=== PATIENT | female | born 1950 | race African-American/Black ===

== ENCOUNTER 2017-01-04 07:08 | Emergency (ER) | payer OTHER ==
[~2017-01-04] VITALS: Ht 165.1 cm; Wt 110.0 kg
[~2017-01-04 07:08] MED LIST: HYDR-2768 PO; LORA-392 PO; METO50TA PO; OMEP20TA39 PO; SERT100 PO
[2017-01-04 07:10] VITALS: BP 208/93; PULSE 55; RESP 20; TEMP 98.9; O2SAT 99
[2017-01-04 07:35] VITALS: BP 194/86
[2017-01-04] MEDS ORDERED: HYDR25TA5 PO (07:45)
[2017-01-04] MEDS ORDERED: METO50TA PO (07:45)
[2017-01-04] MEDS ORDERED: PRIL20CA9 PO (07:45)
[2017-01-04] MEDS ORDERED: ZOLO100T PO (07:45)
[2017-01-04] MEDS ORDERED: LORA-392 PO (07:45)
--- NOTE | 2017-01-04 07:45 | PD ---
HPI Chief Complaint: Bite or Sting Time Seen by Provider: 07:44 Travel History International Travel<30 days: No Contact w/Intl Traveler<30days: No Traveled to known affect area: No History of Present Illness HPI 66-year-old female presents to the emergency department with complaint of rash and itching to her right upper arm since Thursday. The itching continued through Thursday and she took Benadryl last night with good relief. This morning when she woke up with a rash and itching or back. Denies itching or rash to anywhere else on the body other than the right upper arm. Thinks she may have gotten bit by a bug. Denies fever, chills, nausea, vomiting. Denies exposures to new detergents, lotions, soaps, medications, perfumes, foods, environmental exposures. Denies airway edema, shortness of breath. Patient has history of hypertension and took her metoprolol this morning approximately 10 minutes prior to arrival to the ER. She is supposed to take hydrochlorothiazide to but she did not take it this morning because it makes her urinate more frequently and she knew she was coming to the ER. Denies chest pain, shortness of breath, headache, diaphoresis, nausea, vomiting. Allergies to codeine and Lortab. No other medical complaints. No other modifying factors or associated signs and symptoms. PFSH Past Medical History Arthritis: Yes Asthma: No Autoimmune Disease: No Blood Disorders: No Anxiety: Yes Depression: Yes Heart Rhythm Problems: No Cancer: No Cardiac Catheterization: No Cardiovascular Problems: Yes (HTN) High Cholesterol: Yes Chemotherapy: No Chest Pain: Yes Congestive Heart Failure: No COPD: No Diabetes: No Diminished Hearing: No Endocrine: No Gastrointestinal Disorders: Yes Genitourinary: No Hypertension: Yes Immune Disorder: No Implanted Vascular Access Dvce: Yes Kidney Stones: Yes Musculoskeletal: Yes Neurologic: No Psychiatric: No Reproductive: No Respiratory: Yes (ASTHMA) Immunizations Current: No Migraines: Yes Myocardial Infarction: No Radiation Therapy: No Sleep Apnea: No Thyroid Disease: No Ulcer: Yes PNEUMOCCOCAL Vaccine (Year): 2 Menopausal: Yes : 5 Para: 5 Tubal Ligation: Yes Past Surgical History AICD: No Arteriovenous Shunt: No Body Medical Devices: RT KNEE PLATE Coronary Artery Bypass Graft: No Genitourinary Surgery: No Insulin Pump: No Joint Replacement: Yes (RT KNEE REPLACEMENT) Pacemaker: No Other Surgery: Yes (RT KNEE REPLACEMENTS ) Social History Alcohol Use: No Tobacco Use: No Substance Use: No Allergies-Medications (Allergen,Severity, Reaction): Coded Allergies: Codeine (Verified Allergy, Severe, HIVES, 01/04/17) Lortab (Verified Allergy, Severe, 01/04/17) Reported Meds & Prescriptions Reported Meds & Active Scripts Active Reported Zoloft (Sertraline HCl) 100 Mg Tab 100 Mg PO DAILY Metoprolol Tartrate 50 Mg Tab 50 Mg PO BID Prilosec (Omeprazole) 20 Mg Cap 20 Mg PO DAILY PRN Ativan (Lorazepam) 0.5 Mg Tab 0.5 Mg PO DAILY PRN Hydrochlorothiazide 25 Mg Tab 25 Mg PO DAILY Review of Systems Except as stated in HPI: all other systems reviewed are Neg Physical Exam Narrative GENERAL: Well-nourished, well-developed female patient, in no acute distress; afebrile, nontoxic-appearing SKIN: Warm and dry. Right upper arm with mild erythema, maybe secondary to scratching; I do not see any obvious rash or sign of insect bite; no axillary lymphadenopathy. Right upper extremity is supple and non-tense with 2+ radial pulses and sensory intact and without erythema or edema. HEAD: Atraumatic. Normocephalic. EYES: Pupils equal and round. No scleral icterus. No injection or drainage. ENT: Mucosa pink and moist. Airway patent. NECK: Trachea midline. CARDIOVASCULAR: Regular rate. RESPIRATORY: No accessory muscle use. GASTROINTESTINAL: Obese. MUSCULOSKELETAL: No obvious deformities. No clubbing. No cyanosis. No edema. NEUROLOGICAL: Awake and alert. Oriented 3. No obvious cranial nerve deficits. Motor grossly within normal limits. Normal speech. PSYCHIATRIC: Appropriate mood and affect; insight and judgment normal. Data Data Last Documented VS Vital Signs Date Time Temp Pulse Resp B/P Pulse Ox O2 Delivery O2 Flow Rate FiO2 01/04/17 07:35 194/86 01/04/17 07:10 98.9 55 20 99 Room Air MDM Medical Decision Making Medical Screen Exam Complete: Yes Emergency Medical Condition: Yes Medical Record Reviewed: Yes Differential Diagnosis Insect bite, nonspecific rash and skin eruption, hives Narrative Course 66-year-old female with a nonspecific rash or skin interruption to the right upper arm. There is an area of erythema, but appears more consistent with scratching. There are no obvious signs of insect bites or specific rash. Patient is afebrile and nontoxic-appearing. No lymphadenopathy to the right axilla. Instructed patient to continue topical ointment and Benadryl at home as needed for rash and itching. Instructed patient to follow up with cut pressman if symptoms persist. Discussed reasons to return to the emergency department. The patient does have history of hypertension. Her blood pressure is elevated in the ER. Patient is a symptom. She did take her metoprolol approximately 10 minutes prior to arrival. She typically takes hydrochlorothiazide also, but did not take it secondary to increased urination and coming to the ER. Patient says she will take her hydrochlorothiazide when she gets home. Patient verbalizes understanding and agreement with treatment plan. Patient is medically cleared and stable for discharge. Discussed reasons to return to the emergency department. Instructed patient to follow up with primary care provider. Patient agrees with treatment plan. The patients vital signs are stable and the patient is stable for outpatient follow-up and treatment. Patient discharged home, stable and in no acute distress. Diagnosis Primary Impression: Rash and nonspecific skin eruption Referrals: Computer Systems Security Administrator Primary Care Physician Patient Instructions: Acute Rash (ED), General Instructions, Insect Bite or Sting (ED) Additional Instructions: [id number] topicals to reduce itch Benadryl as directed and as needed to reduce itch Follow-up with your primary care provider Follow up dermatology as needed Return to the emergency department immediately with worsening of symptoms Med/Other Pt SpecificInfo: No Change to Meds, No Meds Exist/No RX given Disposition: 01 DISCHARGE HOME Condition: Stable Annalise Parham [employer]ER Jan 04, 2017 07:45
== END 2017-01-04 08:03 | disposition home or self-care (01) ==
LOC: NEPK 07:08
DX: R21 Rash and other nonspecific skin eruption (principal)
CPT/HCPCS: 99282

== ENCOUNTER 2017-12-07 10:45 | Emergency (ER) | payer OTHER ==
[~2017-12-07] VITALS: Ht 162.6 cm; Wt 105.0 kg
[~2017-12-07 10:45] MED LIST changes: -HYDR-2768 PO; +HYDR25TA5 PO; -OMEP20TA39 PO; +PRIL20CA9 PO; -SERT100 PO; +ZOLO100T PO
[2017-12-07 11:56] VITALS: BP 184/86; PULSE 68; RESP 20; TEMP 99.1; O2SAT 98
[2017-12-07 12:00] VITALS: BP 163/75; PULSE 69
--- NOTE | 2017-12-07 12:20 | PD ---
HPI Chief Complaint: ENT Complaint Time Seen by Provider: 12:07 Travel History International Travel<30 days: No Contact w/Intl Traveler<30days: No Traveled to known affect area: No History of Present Illness HPI 67-year-old female presents to the emergency room for evaluation of bilateral ear pain and sore throat for the past 3 days. Pain started on her right ear and has since spread to her left ear. She has severe sore throat that is constant and worse with swallowing. She has associated posterior headache. She has been taking oncv-jxt-bffbtol Tylenol and NyQuil without significant relief in symptoms. She reported a temperature of 102 last night. Patient denies nausea, vomiting, cough, congestion. She did not receive a flu shot this year. PFSH Past Medical History Arthritis: Yes Asthma: No Autoimmune Disease: No Blood Disorders: No Anxiety: Yes Depression: Yes Heart Rhythm Problems: No Cancer: No Cardiac Catheterization: No Cardiovascular Problems: Yes (HTN) High Cholesterol: Yes Chemotherapy: No Chest Pain: Yes Congestive Heart Failure: No COPD: No Diabetes: No Diminished Hearing: No Endocrine: No Gastrointestinal Disorders: Yes Genitourinary: No Hypertension: Yes Immune Disorder: No Implanted Vascular Access Dvce: Yes Kidney Stones: Yes Musculoskeletal: Yes Neurologic: No Psychiatric: No Reproductive: No Respiratory: Yes (ASTHMA) Immunizations Current: No Migraines: Yes Myocardial Infarction: No Radiation Therapy: No Sleep Apnea: No Thyroid Disease: No Ulcer: Yes Tetanus Vaccination: > 5 Years PNEUMOCCOCAL Vaccine (Year): 2 ?: Not Menopausal: Yes : 5 Para: 5 Tubal Ligation: Yes Past Surgical History Abdominal Surgery: Yes AICD: No Arteriovenous Shunt: No Body Medical Devices: RT KNEE PLATE Coronary Artery Bypass Graft: No Genitourinary Surgery: No Insulin Pump: No Joint Replacement: Yes (RT KNEE REPLACEMENT) Pacemaker: No Other Surgery: Yes (RT KNEE REPLACEMENTS ) Family History Family Myocardial Infarction: Yes Social History Alcohol Use: No Tobacco Use: No Substance Use: No Allergies-Medications (Allergen,Severity, Reaction): Coded Allergies: acetaminophen (Unverified Allergy, Severe, 12/07/17) codeine (Unverified Allergy, Severe, HIVES, 12/07/17) hydrocodone (Unverified Allergy, Severe, 12/07/17) Reported Meds & Prescriptions Reported Meds & Active Scripts Active Reported Zoloft (Sertraline HCl) 100 Mg Tab 100 Mg PO DAILY Metoprolol Tartrate 50 Mg Tab 50 Mg PO BID Prilosec (Omeprazole) 20 Mg Cap 20 Mg PO DAILY PRN Ativan (Lorazepam) 0.5 Mg Tab 0.5 Mg PO DAILY PRN Hydrochlorothiazide 25 Mg Tab 25 Mg PO DAILY Review of Systems Except as stated in HPI: all other systems reviewed are Neg Physical Exam Narrative GENERAL: Well-nourished, well-developed female no acute distress. Afebrile. Ambulatory. SKIN: Focused skin assessment warm/dry. HEAD: Normocephalic. EYES: No scleral icterus. No injection or drainage. NECK: Supple, trachea midline. No JVD or lymphadenopathy. ENT: Mucosa pink and moist. Moderate erythema without edema or exudates. No uvular edema. No uvular, palatal, or tonsillar deviation. Airway patent. Nasal turbinates appear normal without nasal blood, purulent drainage or septal hematoma. EARS: Bilateral pinnae and external canals appear within normal limits. Bilateral tympanic membranes without erythema, dullness or perforation. CARDIOVASCULAR: Regular rate and rhythm without murmurs, gallops, or rubs. RESPIRATORY: Breath sounds equal bilaterally. No accessory muscle use. No crackles, rales, wheezes, or rhonchi. Data Data Last Documented VS Vital Signs Date Time Temp Pulse Resp B/P (MAP) Pulse Ox O2 Delivery O2 Flow Rate FiO2 12/07/17 12:00 69 163/75 (104) 12/07/17 11:56 99.1 20 98 Orders Orders Group A Rapid Strep Screen (12/07/17 12:13) Influenzae A/B Antigen (12/07/17 12:13) Strep Culture (Group A) (12/07/17 12:20) Sodium Chloride 0.9% Flush (Ns Flush) (12/07/17 13:15) Ketorolac Inj (Toradol Inj) (12/07/17 13:15) MDM Medical Decision Making Medical Screen Exam Complete: Yes Emergency Medical Condition: Yes Medical Record Reviewed: Yes Differential Diagnosis Effusion, upper respiratory infection, strep, viral syndrome, influenza Narrative Course 67-year-old female presents to the emergency room for evaluation of sore throat and bilateral ear pain for the past 2 days. Pain is constant, worse with swallowing and talking. Patient reported a fever of 102 yesterday. No fever today. She denies body aches, fever, chills. Physical exam is reassuring. There is moderate erythema the pharynx without edema or exudates. Bilateral tympanic membranes are pearly vicente with slight dullness. Lung sounds clear and equal bilaterally. Vital signs stable. Patient resting comfortably. Rapid influenza and strep are negative. She was given Toradol for pain in the emergency room. Discharged with prescriptions for amoxicillin and Magic mouthwash. Told to follow-up with her primary care physician or return for worsening symptoms. She understands and agrees to plan. Diagnosis Primary Impression: Viral pharyngitis Referrals: Primary Care Physician Additional Instructions: Rest and drink plenty of fluids. Amoxicillin as directed, until gone. Magic mouthwash as directed, as needed for sore throat. Follow up with a primary care physician. Return to emergency room for worsening symptoms, as discussed. Scripts Amoxicillin (Amoxicillin) 875 Mg Tab 875 MG PO BID for Infection for 7 Days, #14 TAB 0 Refills Prov: Dayna Shannon MD 12/07/17 Snrwpiugrmxkzoz-Qpfdhpnxg-Xoj-Alum-Simeth Liq (Magic Mouthwash Pediatric/Adult Liq) 60 Ml Susp 5 ML SWISH-SWAL ACHS for Mouth sores, #60 ML 0 Refills Each 5mL contains: Diphenydramine 4.5mg, Viscous Lidocaine 2% 10mg, Maalox Advanced Regular Strength 2.7ml Prov: Dayna Shannon MD 12/07/17 Disposition: 01 DISCHARGE HOME Condition: Stable Chrystal Ziegler Dec 07, 2017 12:19
[2017-12-07] MEDS ORDERED: SODIUM CHLORIDE 0.9% FLUSH 10 ML FLUSH IV FLUSH PRN (13:15)
[2017-12-07] MEDS ORDERED: KETOROLAC TROMETHAMINE 60 MG/2 ML (IM) VIAL IM ONE (13:15)
[2017-12-07] MEDS ORDERED: AMOX875T PO (13:16)
[2017-12-07] MEDS ORDERED: MAGICPED SWISH-SWAL (13:16)
== END 2017-12-07 13:30 | disposition home or self-care (01) ==
LOC: NEPK 10:45
DX: J02.8 Acute pharyngitis due to other specified organisms (principal); B97.89 Other viral agents as the cause of diseases classified elsewhere; I10 Essential (primary) hypertension
CPT/HCPCS: 86403; 87081; 87804; 87880; 96372; 99283; J1885

== ENCOUNTER 2018-03-29 16:33 | Observation (INO) ==
[2018-03-29] MEDS ORDERED: Famotidine PF Inj 20 MG/2 ML Vial IV.PUSH ONE (19:18)
--- NOTE | 2018-03-29 19:49 | XR ---
EXAM DATE: 03/29/2018 7:30 PM EDT AGE/SEX: 67 years / Female INDICATIONS: . Chest pain. CLINICAL DATA: This is the patient's initial encounter. Patient reports that signs and symptoms have been present for 1 day and indicates a pain score of 4/10. MEDICAL/SURGICAL HISTORY: Hypertension. None. COMPARISON: [facility] – [place], CHEST SINGLE AP, 05/15/2015. . FINDINGS: A single AP view of the chest demonstrates the lungs to be symmetrically aerated without evidence of mass, infiltrate or effusion. The cardiomediastinal contours are unremarkable. Osseous structures a re intact. CONCLUSION: The lungs are clear. Electronically signed by: Dale Diallo MD 03/29/2018 7:48 PM EDT
--- NOTE | 2018-03-29 20:04 | ED ---
HPI General Chief complaint: Animal Bite Stated complaint: Bee Sting/SOB Time Seen by Provider: 03/29/18 19:10 History of Present Illness HPI narrative: 67-year-old female presents to the emergency department for complaint of pain to the back of her neck where she was stung by a bee she thinks twice and then developed shoulder pain some left-sided neck pain and some left anterior chest heaviness. This occurred shortly after the bite around noon today. Patient finally came to the emergency room for evaluation. Patient stated that due to the persistence of her discomfort even after using ice and alcohol to the bee sting site she thought she should be evaluated. Patient has history of hypertension and reports she takes antihypertensive medications twice daily. Patient does not take any blood thinning agents. Patient denies any other injury or complaint. No urticaria no lip tongue or throat swelling no hoarseness no stridor. No actual shortness of breath just an awareness of needing to take a breath. No nausea no vomiting no abdominal cramping no diarrhea. Patient states that she feels better at this time but still has some type of awareness or discomfort. She did not use any antihistamines for her symptoms. Patient unable to identify exacerbating or alleviating factors. Related Data Home Medications Medication Instructions Recorded Confirmed lorazepam 0.5 mg PO DAILY PRN 03/29/18 03/30/18 sertraline [Zoloft] 100 mg PO DAILY 03/29/18 03/30/18 simvastatin 20 mg PO QPM 03/29/18 03/30/18 diphenhydramine HCl [Benadryl] 25 mg PO HS PRN 03/30/18 03/30/18 hydrochlorothiazide 25 mg PO DAILY 03/30/18 03/30/18 lorazepam 0.5 mg PO TID PRN 03/30/18 03/30/18 metoprolol tartrate 75 mg PO BID 03/30/18 03/30/18 ranitidine HCl [Zantac Maximum 300 mg PO DAILY 03/30/18 03/30/18 Strength] Allergies Allergy/AdvReac Type Severity Reaction Status Date / Time codeine Allergy Severe HIVES Verified 03/30/18 08:17 hydrocodone Allergy Severe Hives Verified 03/30/18 08:17 Review of Systems Except as stated in HPI: all other systems reviewed are negative [facility] Social History Social History Substance History: No History of Abuse Second Hand Smoke Exposure: No Smoking Status: Never smoker How Often Do You Have a Drink Containing Alcohol: Never Recent Travel in [place] within the Last 8 Weeks: No Recent Out of Country Travel within the Last 8 Weeks: No Exam Narrative Exam Narrative: GENERAL: Well-nourished, well-developed patient. No acute distress no respiratory distress SKIN: Focused skin assessment warm/dry. Left posterior neck and upper back 2 small areas of erythema consistent with possible bee sting no puncture wound identified no foreign body identified nontender to palpation no gross urticaria no excoriation no fluctuance no induration nontender. HEAD: Normocephalic. EYES: No scleral icterus. No injection or drainage. NECK: Supple, trachea midline. No JVD or lymphadenopathy. CARDIOVASCULAR: Regular rate and rhythm without murmurs, gallops, or rubs. RESPIRATORY: Breath sounds equal bilaterally. No accessory muscle use. GASTROINTESTINAL: Abdomen soft, non-tender, nondistended. MUSCULOSKELETAL: No cyanosis, or edema. BACK: Nontender without obvious deformity. No CVA tenderness. Course Initial Documented Vital Signs Temperature 98.5 F 03/29/18 16:54 Pulse Rate 54 L 03/29/18 16:54 Respiratory Rate 16 03/29/18 16:54 Blood Pressure 196/84 H 03/29/18 16:54 Pulse Oximetry 98 03/29/18 16:54 Last Documented Vital Signs Temperature 97.8 F 03/30/18 12:00 Pulse Rate 53 L 03/30/18 12:00 Respiratory Rate 20 03/30/18 12:00 Blood Pressure 133/65 03/30/18 12:00 Pulse Oximetry 97 03/30/18 12:00 Medical Decision Making [facility] Narrative Medical decision making narrative: 67-year-old female with history of hypertension after bee sting presents to the emergency department for complaint of burning at the sting site and some discomfort to the neck in the area of the being site as well as the shoulder and and patient placed on pvc monitor with continuous pulse oximetry IV access obtained specimens collected and sent for resulting EKG ordered in triage shows sinus bradycardia rate 55 first- degree AV block right ventricular conduction delay with nonspecific RSR prime V1 V2 and no acute ST elevation or injury pattern this was performed at 17:19 p.m. Cardiac enzymes are noted for troponin I being 0.05; potassium 3.2 oral potassium replacement administered At 9:05 PM patient reports no change in symptoms Zyrtec and Pepcid pending; troponin I is 0.05 patient has had aspirin added to her current medications to be administered; repeat blood pressure pending Differential Diagnosis Differential Diagnosis: Bee sting, localized allergic reaction, uncontrolled hypertension, atypical chest pain, ACS, CA; Medical Records Medical records reviewed: Yes I reviewed the patient's medical records. Lab Data Lab results reviewed: Yes I reviewed the patient's lab results. Result diagrams: 03/29/18 19:40 03/29/18 19:40 Lab Results 03/29/18 03/29/18 03/29/18 Range/Units 19:40 19:40 19:40 WBC 7.0 (4.0-11.0) th/mm3 RBC 4.35 (4.00-5.30) mil/mm3 Hgb 12.1 (11.6-15.3) gm/dL Hct 36.2 (35.0-46.0) % MCV 83.1 (80.0-100.0) fL MCH 27.8 (27.0-34.0) pg MCHC 33.4 (32.0-36.0) % RDW 13.8 (11.6-17.2) % Plt Count 247 (150-450) th/mm3 MPV 8.6 (7.0-11.0) fL Neut % (Auto) 37.4 (16.0-70.0) % Lymph % (Auto) 53.0 H (9.0-44.0) % [place] % (Auto) 7.0 (0.0-8.0) % Eos % (Auto) 1.8 (0.0-4.0) % Baso % (Auto) 0.8 (0.0-2.0) % Neut # (Auto) 2.6 (1.8-7.7) th/mm3 Lymph # (Auto) 3.7 (1.0-4.8) th/mm3 Ob[place] # (Auto) 0.5 (0.0-0.9) th/mm3 Eos # (Auto) 0.1 (0.0-0.4) th/mm3 Baso # (Auto) 0.1 (0.0-0.2) th/mm3 WBC Differential . Differential Comment Auto diff final PT 10.0 (9.8-11.6) sec INR 1.0 Ratio APTT 26.8 (24.3-30.1) sec Sodium 141 (136-145) meq/L Potassium 3.2 L (3.5-5.1) meq/L Chloride 105 (98-107) meq/L Carbon Dioxide 25.2 (21.0-32.0) meq/L Anion Gap 11 (5-15) meq/L BUN 17 (7-18) mg/dL Creatinine 0.62 (0.50-1.00) mg/dL Estimated GFR Greater than 89 (>89) mL/min Random Glucose 96 (74-106) mg/dL Calcium 9.2 (8.5-10.1) mg/dL Magnesium 2.1 (1.5-2.5) mg/dL Total Creatine Kinase 91 (26-192) U/L Troponin I 0.05 (0.02-0.05) ng/mL 03/29/18 03/30/18 Range/Units 23:30 03:00 WBC (4.0-11.0) th/mm3 RBC (4.00-5.30) mil/mm3 Hgb (11.6-15.3) gm/dL Hct (35.0-46.0) % MCV (80.0-100.0) fL MCH (27.0-34.0) pg MCHC (32.0-36.0) % RDW (11.6-17.2) % Plt Count (150-450) th/mm3 MPV (7.0-11.0) fL Neut % (Auto) (16.0-70.0) % Lymph % (Auto) (9.0-44.0) % Obion % (Auto) (0.0-8.0) % Eos % (Auto) (0.0-4.0) % Baso % (Auto) (0.0-2.0) % Neut # (Auto) (1.8-7.7) th/mm3 Lymph # (Auto) (1.0-4.8) th/mm3 Obion # (Auto) (0.0-0.9) th/mm3 Eos # (Auto) (0.0-0.4) th/mm3 Baso # (Auto) (0.0-0.2) th/mm3 WBC Differential Differential Comment PT (9.8-11.6) sec INR Ratio APTT (24.3-30.1) sec Sodium (136-145) meq/L Potassium (3.5-5.1) meq/L Chloride (98-107) meq/L Carbon Dioxide (21.0-32.0) meq/L Anion Gap (5-15) meq/L BUN (7-18) mg/dL Creatinine (0.50-1.00) mg/dL Estimated GFR (>89) mL/min Random Glucose (74-106) mg/dL Calcium (8.5-10.1) mg/dL Magnesium (1.5-2.5) mg/dL Total Creatine Kinase 81 58 (26-192) U/L Troponin I 0.05 0.05 (0.02-0.05) ng/mL Potassium was 3.2 given oral potassium replacement Imaging Data Radiologist's impression: Chest X-Ray 03/29/18 19:16 CONCLUSION: The lungs are clear. Myocardial Perfusion Scan Nuc Med 03/30/18 09:47 CONCLUSION: 1. No significant ischemia. ECG Data EKG Prior to Arrival: No Attestation: I personally reviewed and interpreted this ECG as follows: Prior ECG tracings: available for review Interpretation: EKG: Sinus bradycardia rate 55 first-degree AV block right ventricular conduction delay no acute ST elevation injury pattern noted Discharge Plan Discharge Disposition Patient Disposition: 30 Still Patient Discharge Condition Condition: Stable Discharge Order Discharge Orders: Discharge Order (Routine); Ordered 03/30/18 Ordered By: [place] Discharge Details Anticipated Discharge Date: 03/30/18 Diagnosis: Chest pain, HTN (hypertension), Bee sting reaction, Hypokalemia Physicians Team ED Provider: Ashley Mansfield Primary Care Provider: Radha Bobby Attending Provider: Suraj Prasad Status ED Status: Left Department Discharge Information Discharge Date/Time: 03/30/18 11:21
[2018-03-29 20:07] LABS: Baso # (Auto) 0.1 th/mm3 (0.0-0.2); Baso % (Auto) 0.8 % (0.0-2.0); Eos # (Auto) 0.1 th/mm3 (0.0-0.4); Eos % (Auto) 1.8 % (0.0-4.0); Hematocrit 36.2 % (35.0-46.0); Hemoglobin 12.1 gm/dL (11.6-15.3); Lymph # (Auto) 3.7 th/mm3 (1.0-4.8); Mean Corpuscular HGB Conc 33.4 % (32.0-36.0); Mean Corpuscular Hemoglobin 27.8 pg (27.0-34.0); Mean Corpuscular Volume 83.1 fL (80.0-100.0); Mean Platelet Volume 8.6 fL (7.0-11.0); Mono # (Auto) 0.5 th/mm3 (0.0-0.9); Neut # (Auto) 2.6 th/mm3 (1.8-7.7); Neut % (Auto) 37.4 % (16.0-70.0); Platelet Count 247 th/mm3 (150-450); Red Blood Count 4.35 mil/mm3 (4.00-5.30); Red Cell Distribution Width 13.8 % (11.6-17.2)
[2018-03-29 20:33] LABS: Anion Gap 11 meq/L (5-15); Blood Urea Nitrogen 17 mg/dL (7-18); Calcium 9.2 mg/dL (8.5-10.1); Carbon Dioxide 25.2 meq/L (21.0-32.0); Chloride 105 meq/L (98-107); Glomerular Filtration Rate Greater Than 89 mL/min (>89); Glucose,Random 96 mg/dL (74-106); Magnesium 2.1 mg/dL (1.5-2.5); Potassium 3.2 meq/L (3.5-5.1); Sodium 141 meq/L (136-145)
[2018-03-29 20:34] LABS: Activated Partial Thrombo Time 26.8 sec (24.3-30.1)
[2018-03-29 20:38] LABS: Troponin I 0.05 ng/mL (0.02-0.05)
[2018-03-29 20:39] LABS: Creatine Kinase 91 U/L (26-192)
[2018-03-29] MEDS ORDERED: hydrALAZINE HCl Inj 20 MG/ML Vial IV.PUSH ONE (23:43)
[2018-03-30 00:11] LABS: Troponin I 0.05 ng/mL (0.02-0.05)
[2018-03-30 04:29] LABS: Troponin I 0.05 ng/mL (0.02-0.05)
[2018-03-30] MEDS ORDERED: Acetaminophen 325 MG Tablet PO ONE (05:12)
[2018-03-30] MEDS ORDERED: Aspirin 325 MG Tablet PO SCH (09:00)
[2018-03-30 09:44] VITALS: PULSE 53
--- NOTE | 2018-03-30 09:59 | P.HPCA ---
History of Present Illness Primary Care Physician: Radha Bobby Chief Complaint: Chest pain History of Present Illness: This is a 67-year-old female history of hypertension and hyperlipidemia that presents to ED with a complaint of developing a chest discomfort yesterday afternoon around 230 after being stung in the neck by a bee. States the discomfort was in the center of her chest. There is described as a heaviness lasting about 7 hours. Denies feeling short of breath nauseous or diaphoretic. Denies swelling in her throat denies any swelling in her tongue. Was not wheezing. Denies having any rash breakout afterwards. Denies history of CAD and cannot recall any recent stress test. Currently denies chest discomfort. - Diagnosis (1) Chest pain (2) Hyperlipidemia (3) HTN (hypertension) Inpatient Certification: I certify that the inpatient services were ordered in accordance with Medicare regulations governing the order. This includes certification that hospital inpatient services are reasonable and necessary and in the case of services not specified as inpatient-only under 42 CFR 419.22(n), that they are appropriately provided as inpatient services in accordance to with the 2-midnight benchmark under 43 CFR 412.3(e) Review of Systems General: Patient denies fevers, chills, and recent travel. HEENT: Patient denies headache, sore throat, difficulty swallowing. Cardiovascular: Has the chest discomfort as mentioned above. Denies sensation of heart beating rapidly or irregularly. No syncope. Denies diaphoresis. Respiratory: Denies shortness of breath or inspirational chest discomfort. Denies coughing wheezing or hemoptysis. GI: Patient denies nausea, vomiting, diarrhea, abdominal pain, bloody stools. Musculoskeletal: Patient denies joint pain or edema. Denies calf pain or edema. Neurovascular: Patient denies numbness, tingling, weakness in extremities. Denies headache. Endocrine: Denies polyuria and polydipsia. Hematologic: Denies easy bruising. Skin: Denies rash or itching. PMFSH - History History Provided By: Patient - Tobacco History Second Hand Smoke Exposure: No Smoking Status: Never smoker - Alcohol History How Often Do You Have a Drink Containing Alcohol: Never - Substance Use History Substance History: No History of Abuse - Travel History Recent Travel in the [place] Within the Last 8 Weeks: No Recent Travel Out of the Country Within the Last 8 Weeks: No - Immunization History Tetanus Immunization: Unsure Hx Influenza Vaccine This Season: Yes Medications and Allergies Active Medications: Active Medications Aspirin (Aspirin) 325 mg PO DAILY MAYURI Last Admin: 03/30/18 08:22 Dose: 325 mg Clonidine HCl (Catapres) 0.1 mg PO Q6H PRN PRN Reason: SBP >165 OR DBP > 110 Last Admin: 03/30/18 09:44 Dose: 0.1 mg Nitroglycerin (Nitrostat Sl) 0.4 mg SL Q5M PRN PRN Reason: CHEST PAIN Sodium Chloride (Ns Flush) 2 ml IV.FLUSH UNSCH PRN PRN Reason: FLUSH AFTER USING IV ACCESS Sodium Chloride (Ns Flush) 2 ml IV.FLUSH BID MAYURI Sodium Chloride (Ns Flush) 2 ml IV.FLUSH PRN PRN PRN Reason: FLUSH AFTER USING IV ACCESS Allergies Allergy/AdvReac Type Severity Reaction Status Date / Time codeine Allergy Severe HIVES Verified 03/30/18 08:17 hydrocodone Allergy Severe Hives Verified 03/30/18 08:17 Home Medications Medication Instructions Recorded Confirmed Type lorazepam 0.5 mg PO DAILY PRN 03/29/18 03/30/18 History sertraline [Zoloft] 100 mg PO DAILY 03/29/18 03/30/18 History simvastatin 20 mg PO QPM 03/29/18 03/30/18 History diphenhydramine HCl [Benadryl] 25 mg PO HS PRN 03/30/18 03/30/18 History hydrochlorothiazide 25 mg PO DAILY 03/30/18 03/30/18 History lorazepam 0.5 mg PO TID PRN 03/30/18 03/30/18 History metoprolol tartrate 75 mg PO BID 03/30/18 03/30/18 History ranitidine HCl [Zantac Maximum 300 mg PO DAILY 03/30/18 03/30/18 History Strength] Exam Vital signs: Vital Signs 03/29/18 16:54 03/29/18 18:46 03/29/18 19:02 Temperature 98.5 F Pulse Rate 54 L 54 L Respiratory Rate 16 18 Blood Pressure 196/84 H 250/133 H 208/86 H Pulse Oximetry 98 97 03/29/18 22:52 03/29/18 23:38 03/30/18 00:58 Temperature Pulse Rate 50 L 50 L 54 L Respiratory Rate 18 18 18 Blood Pressure 182/79 H 194/81 H 163/75 H Pulse Oximetry 96 100 96 03/30/18 03:47 03/30/18 08:20 03/30/18 09:43 Temperature Pulse Rate 51 L 65 53 L Respiratory Rate 17 23 19 Blood Pressure 132/60 207/97 H 153/82 H Pulse Oximetry 96 95 100 Intake & Output 03/29/18 03/30/18 03/30/18 18:59 06:59 18:59 Weight 99.79 kg Narrative: GENERAL: This is a well-nourished, well-developed patient, in no apparent distress. Patient speaks in clear complete sentences. Patient is pleasant. HEENT: Head is atraumatic and normocephalic. Neck is supple without lymphadenopathy and trachea is midline. No JVD or carotid bruits. CARDIOVASCULAR: Regular rate and rhythm without murmurs, gallops, or rubs. RESPIRATORY: Clear to auscultation. Breath sounds equal bilaterally. No wheezes , rales, or rhonchi. Chest wall is nontender. No use of accessory muscles. GASTROINTESTINAL: Abdomen is nontender, nondistended. Abdomen soft. No obvious pulsatile mass or bruit. No CVA tenderness. Strong femoral pulses bilaterally. Normal bowel sounds in all quadrants. MUSCULOSKELETAL: Patient is moving upper and lower extremities freely. No calf tenderness or edema, no Homans sign. Strong pulses in upper and lower extremities. NEUROLOGICAL: Patient is alert and oriented. Cranial nerves 2-12 are grossly intact. No focal deficits and speech is clear. SKIN: No rash and turgor is normal. Results 03/29/18 19:40 03/29/18 19:40 Cardiac Enzymes 03/29/18 03/29/18 03/30/18 Range/Units 19:40 23:30 03:00 Troponin I 0.05 0.05 0.05 (0.02-0.05) ng/mL Coagulation 03/29/18 Range/Units 19:40 PT 10.0 (9.8-11.6) sec APTT 26.8 (24.3-30.1) sec CBC 03/29/18 Range/Units 19:40 WBC 7.0 (4.0-11.0) th/mm3 RBC 4.35 (4.00-5.30) mil/mm3 Hgb 12.1 (11.6-15.3) gm/dL Hct 36.2 (35.0-46.0) % Plt Count 247 (150-450) th/mm3 Neut # (Auto) 2.6 (1.8-7.7) th/mm3 Lymph # (Auto) 3.7 (1.0-4.8) th/mm3 [place] # (Auto) 0.5 (0.0-0.9) th/mm3 Eos # (Auto) 0.1 (0.0-0.4) th/mm3 Baso # (Auto) 0.1 (0.0-0.2) th/mm3 Comprehensive Metabolic Panel 03/29/18 Range/Units 19:40 Sodium 141 (136-145) meq/L Potassium 3.2 L (3.5-5.1) meq/L Chloride 105 (98-107) meq/L Carbon Dioxide 25.2 (21.0-32.0) meq/L BUN 17 (7-18) mg/dL Creatinine 0.62 (0.50-1.00) mg/dL Calcium 9.2 (8.5-10.1) mg/dL Intake and Output 03/29/18 03/30/18 03/30/18 22:59 06:59 14:59 Other: Weight 99.79 kg EKG interpretations - EKG EKG shows: sinus rhythm (EKG has pattern of LVH. There are anterolateral nonspecific T wave changes.) Caprini VTE Risk Assessment Caprini VTE Risk Assessment: Moderate/High Risk (score >= 2) Caprini Risk Assessment Model: Point Value = 1 Point Value = 2 Point Value = 3 Point Value = 5 Age 41-60 Minor surgery BMI > 25 kg/m2 Swollen legs Varicose veins or History of unexplained or recurrent spontaneous Oral contraceptives or hormone replacement Sepsis (< 1 month) Serious lung disease, including pneumonia (< 1 month) Abnormal pulmonary function Acute myocardial infarction Congestive heart failure (< 1 month) History of inflammatory bowel disease Medical patient at bed rest Age 61-74 Arthroscopic surgery Major open surgery (> 45 min) Laparoscopic surgery (> 45 min) Malignancy Confined to bed (> 72 hours) Immobilizing plaster cast Central venous access Age >= 75 History of VTE Family history of VTE Factor V Leiden Prothrombin [id number] Lupus anticoagulant Anticardiolipin antibodies Elevated serum homocysteine Heparin-induced thrombocytopenia Other congenital or acquired thrombophilia Stroke (< 1 month) Elective arthroplasty Hip, pelvis, or leg fracture Acute spinal cord injury (< 1 month) Prophylaxis Regimen: Total Risk Factor Score Risk Level Prophylaxis Regimen 0-1 Low Early ambulation 2 Moderate Order ONE of the following: *Sequential Compression Device (SCD) *Heparin 5000 units SQ BID 3-4 Higher Order ONE of the following medications: *Heparin 5000 units SQ TID *Enoxaparin/Lovenox 40 mg SQ daily (WT < 150 kg, CrCl > 30 mL/min) *Enoxaparin/Lovenox 30 mg SQ daily (WT < 150 kg, CrCl > 10-29 mL/min) *Enoxaparin/Lovenox 30 mg SQ BID (WT < 150 kg, CrCl > 30 mL/min) AND/OR *Sequential Compression Device (SCD) 5 or more Highest Order ONE of the following medications: *Heparin 5000 units SQ TID (Preferred with Epidurals) *Enoxaparin/Lovenox 40 mg SQ daily (WT < 150 kg, CrCl > 30 mL/min) *Enoxaparin/Lovenox 30 mg SQ daily (WT < 150 kg, CrCl > 10-29 mL/min) *Enoxaparin/Lovenox 30 mg SQ BID (WT < 150 kg, CrCl > 30 mL/min) AND *Sequential Compression Device (SCD) Assessment and Plan - Assessment (1) Chest pain Code(s): R07.9 - Chest pain, unspecified Status: Acute (2) Hyperlipidemia Code(s): E78.5 - Hyperlipidemia, unspecified Status: Acute (3) HTN (hypertension) Code(s): I10 - Essential (primary) hypertension Status: Acute - Plan * Chest pain: Patient has had serial cardiac enzymes and EKGs for ruling out purposes. She was seen by Dr. Pyle of cardiology in the chest pain center and will undergo a Lexiscan. Patient will be discharged home if her Lexiscan is nonischemic with instructions to follow-up with PCP. Return to ED for interval issues. * Hypertension: Continue medication. * Hyperlipidemia: Continue medication. Patient is stable at this time. She is agreeable to this plan. (1) Chest pain Qualifiers: Chest pain type: unspecified Qualified Code(s): R07.9 - Chest pain, unspecified (3) HTN (hypertension) Qualifiers: Hypertension type: essential hypertension Qualified Code(s): I10 - Essential (primary) hypertension
[2018-03-30] MEDS ORDERED: Famotidine 20 MG Tablet PO SCH (10:00)
[2018-03-30] MEDS ORDERED: Sertraline 100 MG Tablet PO SCH (10:00)
[2018-03-30] MEDS ORDERED: hydroCHLOROthiazide 25 MG Tablet PO SCH (10:00)
[2018-03-30] MEDS ORDERED: Metoprolol Tartrate 25 MG Tablet PO SCH (10:00)
[2018-03-30 13:13] VITALS: BP 133/65; RESP 20; TEMP 97.8; O2SAT 97
[2018-03-30] MEDS ORDERED: LORazepam 0.5 MG Tablet PO PRN (13:58)
[2018-03-30] MEDS ORDERED: Regadenoson Inj 0.4 MG/5 ML Syringe IV.PUSH ONE (16:25)
--- NOTE | 2018-03-30 16:42 | ECG ---
Date Performed: 03/30/2018 Time Performed: 03:23:24 PTAGE: 67 years EKG: SINUS BRADYCARDIA WITH FIRST DEGREE AV BLOCK POSSIBLE RIGHT VENTRICULAR CONDUCTION DELAY MO DERATE T-WAVE ABNORMALITY, CONSIDER ANTERIOR ISCHEMIA MODERATE T-WAVE ABNORMALITY, CONSIDER INFERIOR ISCHEMIA ABNORMAL ECG Since PREVIOUS TRACING , no significant change noted PREVIOUS TRACIN03/29/2018 23.08 DOCTOR: Jailyn Pyle Interpretating Date/Time 03/30/2018 16:41:30
--- NOTE | 2018-03-30 16:43 | ECG ---
Date Performed: 03/29/2018 Time Performed: 23:08:57 PTAGE: 67 years EKG: SINUS BRADYCARDIA WITH FIRST DEGREE AV BLOCK POSSIBLE RIGHT VENTRICULAR CONDUCTION DELAY NO NSPECIFIC T-WAVE ABNORMALITY ABNORMAL ECG Since PREVIOUS TRACING , no significant change noted PREVIOUS TRACIN03/29/2018 17.19 DOCTOR: Jailyn Pyle Interpretating Date/Time 03/30/2018 16:42:17
--- NOTE | 2018-03-30 17:42 | NM ---
EXAM DATE: 03/30/2018 5:31 PM EDT AGE/SEX: 67 years / Female INDICATIONS:Angina. . Substernal chest pain. CLINICAL DATA: This is the patient's initial encounter. Patient reports that signs and symptoms have been present for 1 day and indicates a pain score of 3/10. MEDICAL/SURGICAL HISTORY: Hypertension. None. COMPARISON: [facility] [place]OCARD[place] PHARM SPECT, 06/21/2011. . DOSE: 11.0 mCi Tc 99m Myoview at rest 35.0 mCi [id number] at stress 0.4 mg Lexiscan STRESS SYMPTOMS: None. EJECTION FRACTION: 66 % TECHNIQUE: The patient underwent pharmacologic stress with infusion of prescribed dose. Continuous ECG tracing was monitored during stress. Gated SPECT imaging was performed after stress and conventi onal SPECT imaging was performed at rest. The examination was performed on a SPECT/CT scanner, both attenuation and non-corrected datasets were reviewed. FINDINGS: Distribution: The maximum perfused segment at stress is in the anterolateral wall. Perfusion Study: The pattern of perfusion at stress is within normal limits. Gated Study: There are intact wall motion and wall thickening without hypokinetic or dyskinetic segm ents. The ejection fraction is calculated at 66%. RISK CATEGORY: Low (<1% Annual Motality Rate) CONCLUSION: 1. No significant ischemia. Electronically signed by: Rena Porras MD 03/30/2018 5:41 PM EDT
--- NOTE | 2018-03-30 21:01 | ECG ---
Date Performed: 03/29/2018 Time Performed: 17:19:54 PTAGE: 67 years EKG: SINUS BRADYCARDIA WITH FIRST DEGREE AV BLOCK POSSIBLE RIGHT VENTRICULAR CONDUCTION DELAY MO DERATE VOLTAGE CRITERIA FOR LVH, CONSIDER NORMAL VARIANT NONSPECIFIC T-WAVE ABNORMALITY ABNORMAL ECG PREVIOUS TRACING : 12/25/2015 10.36 No significant change when compared with previous DOCTOR: Lakshmi Steel Interpretating Date/Time 03/30/2018 20:59:28
--- NOTE | 2018-04-01 12:08 | TR ---
Date Performed: 03/30/2018 Time Performed: 16:27:19 DOCTOR: Jailyn Pyle DRUG LIST: CLINICAL HISTORY: REASON FOR TEST: REASON FOR ENDING: OBSERVATION: CONCLUSION: Lexiscan stress test was performed under standard four minute protocol. Radionuclid e was injected one minute prior to ending the test. No electrocardiographic abormalities were present to suggest ischemia. Nuclear imaging and interpretation are pending. COMMENTS: no ischemia
== END 2018-03-30 18:30 | disposition home or self-care (01) ==
LOC: NEPC 16:33 → NEDA 16:33 → NEPFCDU 16:33 → NEDH 03-30 06:18 → NEPFCDU 03-30 11:45
PROVIDERS: ADMIT Internal Medicine Cardiovascular Disease; ATTEND Internal Medicine Cardiovascular Disease
DX: Z79.82 Long term (current) use of aspirin; E78.5 Hyperlipidemia, unspecified; Z79.899 Other long term (current) drug therapy; I44.0 Atrioventricular block, first degree; T63.441A Toxic effect of venom of bees, accidental (unintentional), initial encounter; R07.89 Other chest pain; I10 Essential (primary) hypertension; R00.1 Bradycardia, unspecified